=== PATIENT | female | born 1960 | race African-American/Black ===

== ENCOUNTER 2022-03-26 11:05 | Emergency (ER) | payer MEDICARE, MEDICAID ==
[2022-03-26 14:10] LABS: ALT (SGPT) 16 U/L (8-55); AST (SGOT) 56 U/L (5-34); Albumin 3.5 g/dL (3.4-4.8); Alkaline Phosphatase 123 U/L (40-110); Anion Gap 21 mmol/L (10-20); BUN (Urea Nitrogen) 21 mg/dL (9.8-20.1); Bilirubin, Total 1.2 mg/dL (0.2-1.2); Calc. Creatinine Clearance 0 mL/min (70-130); Calcium 9.6 mg/dL (7.8-10.44); Carbon Dioxide 16 mmol/L (23-31); Chloride 106 mmol/L (98-107); Estimated GFR 59; Globulin 4.2 g/dL (2.4-3.5); Glucose 81 mg/dL (80-115); Potassium 4.4 mmol/L (3.5-5.1); Protein, Total 7.7 g/dL (5.8-8.1); Sodium 139 mmol/L (136-145)
[2022-03-26 14:23] LABS: #Lymphocytes 1.1 thou/uL (1.20-3.40); #Monocytes 0.5 thou/uL (0.11-0.59); #Neutrophils 4.1 thou/uL (1.40-6.50); %Basophils 0.4 % (0.0-1.0); %Eosinophils 0.4 % (0.0-10.0); %Lymphocytes 19.1 % (21.0-51.0); %Monocytes 8.4 % (0.0-10.0); %Neutrophils 71.7 % (42.0-75.0); Hemoglobin 16.4 g/dL (12.0-16.0); Mean Corpuscular HGB CONC 32.6 g/dL (32.0-36.0); Mean Corpuscular Hemoglobin 33.9 pg (27.0-31.0); Mean Platelet Volume 10.6 fL (7.4-10.4); Platelet Count 122 thou/uL (130-400); RBC Distribution Width 12.4 % (11.5-14.5); Red Blood Cell (RBC) Count 4.82 mill/uL (4.20-5.40); White Blood Cell (WBC) Count 5.8 thou/uL (4.8-10.8)
[2022-03-26 15:40] LABS: Bilirubin Negative (Negative); Blood, Urine Negative (Negative); Clarity Clear (Clear); Glucose, Urine (Dipstick) Normal (Negative); Ketone, Urine Negative (Negative); Leukocyte Negative Leu/uL (Negative); Nitrite Negative (Negative); Protein, Urine (Dipstick) 20 mg/dL (Neg-Trace); Specific Gravity, Urine 1.026 (1.002-1.036); Urobilinogen Normal mg/dL (Less than 2)
== END 2022-03-26 16:15 | disposition home or self-care (01) ==
LOC: ERS 11:05
DX: R56.9 Unspecified convulsions (principal); E03.9 Hypothyroidism, unspecified; Z79.899 Other long term (current) drug therapy
CPT/HCPCS: 36415; 70450; 80053; 81003; 85025; 93005

== ENCOUNTER 2022-08-21 11:25 | Inpatient (IN) | payer MEDICARE, MEDICAID ==
[~2022-08-21 11:25] MED LIST: Iopamidol-370 76% 500 ML 1 ML ONE
[2022-08-21 12:04] LABS: #Eosinphils 0.1 thou/uL (0.0-0.7); #Lymphocytes 1.4 thou/uL (1.20-3.40); #Monocytes 0.5 thou/uL (0.11-0.59); #Neutrophils 3.5 thou/uL (1.40-6.50); %Basophils 0.4 % (0.0-1.0); %Eosinophils 1.4 % (0.0-10.0); %Lymphocytes 25.1 % (21.0-51.0); %Monocytes 9.3 % (0.0-10.0); %Neutrophils 63.8 % (42.0-75.0); Hemoglobin 13.8 g/dL (12.0-16.0); Mean Corpuscular HGB CONC 32.7 g/dL (32.0-36.0); Mean Corpuscular Hemoglobin 34.1 pg (27.0-31.0); Mean Platelet Volume 10.7 fL (7.4-10.4); Platelet Count 150 10x3/uL (130-400); Red Blood Cell (RBC) Count 4.05 mill/uL (4.20-5.40); White Blood Cell (WBC) Count 5.5 10x3/uL (4.8-10.8)
[2022-08-21 12:30] LABS: ALT (SGPT) 13 U/L (8-55); AST (SGOT) 38 U/L (5-34); Albumin 3.2 g/dL (3.4-4.8); Alkaline Phosphatase 125 U/L (40-110); Anion Gap 15 mmol/L (10-20); BUN (Urea Nitrogen) 24 mg/dL (9.8-20.1); Bilirubin, Total 1.1 mg/dL (0.2-1.2); Calc. Creatinine Clearance 0 mL/min (70-130); Calcium 9.5 mg/dL (7.8-10.44); Carbon Dioxide 22 mmol/L (23-31); Chloride 117 mmol/L (98-107); Estimated GFR 61; Globulin 4.5 g/dL (2.4-3.5); Glucose 72 mg/dL (80-115); Potassium 4.2 mmol/L (3.5-5.1); Protein, Total 7.7 g/dL (5.8-8.1); Sodium 150 mmol/L (136-145)
[2022-08-21 12:50] LABS: CKMB 5.5 ng/mL (0-6.6)
[2022-08-21] MEDS ORDERED: Ziprasidone 20 MG VIAL ONE (13:41)
[2022-08-21 14:37] LABS: Lactic Acid 2.5 mmol/L (0.5-2.2)
[2022-08-21] MEDS ORDERED: Aspirin Chewable 81 MG TAB ONE (15:32)
[2022-08-21] MEDS ORDERED: Ondansetron ODT 4 MG TAB PO PRN (16:35)
[2022-08-21] MEDS ORDERED: Acetaminophen 650 MG Suppository PR PRN (16:35)
[2022-08-21] MEDS ORDERED: Acetaminophen 325 MG TAB PO PRN (16:35)
[2022-08-21] MEDS ORDERED: Ondansetron PF 4 MG/2 ML Vial IVP PRN (16:35)
[2022-08-21 16:48] LABS: Troponin I 0.138 ng/mL (< 0.028)
[2022-08-21 18:57] VITALS: BMI 22.9
[2022-08-21 19:49] LABS: Troponin I 0.107 ng/mL (< 0.028)
[2022-08-22 06:25] LABS: Hemoglobin 13.7 g/dL (12.0-16.0); Mean Corpuscular HGB CONC 32.9 g/dL (32.0-36.0); Mean Corpuscular Hemoglobin 35.2 pg (27.0-31.0); Mean Platelet Volume 10.9 fL (7.4-10.4); Platelet Count 156 10x3/uL (130-400); RBC Distribution Width 14.3 % (11.5-14.5); Red Blood Cell (RBC) Count 3.88 mill/uL (4.20-5.40); White Blood Cell (WBC) Count 4.7 10x3/uL (4.8-10.8)
[2022-08-22 06:30] LABS: Anion Gap 11 mmol/L (10-20); BUN (Urea Nitrogen) 23 mg/dL (9.8-20.1); Calc. Creatinine Clearance 47 mL/min (70-130); Calcium 8.9 mg/dL (7.8-10.44); Carbon Dioxide 27 mmol/L (23-31); Chloride 117 mmol/L (98-107); Estimated GFR 61; Glucose 70 mg/dL (80-115); Potassium 4.6 mmol/L (3.5-5.1)
[2022-08-22 06:31] LABS: Sodium 150 mmol/L (136-145)
[2022-08-22 06:40] LABS: MDiff Complete? YES; Macrocytosis SLIGHT = 6-15 cells (100X) (0-5/hpf)
[2022-08-22 06:57] LABS: Band 3 % (5-11); Eosinophils 3 % (0-10); Lymphocytes 40 % (21-51); Monocytes 7 % (0-10); Neutrophil 47 % (42-75)
[2022-08-22] MEDS ORDERED: Amlodipine 5 MG TAB PO SCH (14:45)
[2022-08-22] MEDS: Chlorhexidine Gluconate 15 ML UDCUP SSP SCH ×2 (14:54→20:51)
[2022-08-22] MEDS: Dextrose 5% in Water 1,000 ML IV SCH ×2 (14:55→20:51)
[2022-08-22] MEDS: Clindamycin 75 mg/5 ml Oral Suspension PO SCH ×2 (16:13→22:58)
[2022-08-22] MEDS ORDERED: Ziprasidone 20 MG VIAL IM SCH ×2 (18:00→18:45)
[2022-08-22] MEDS ORDERED: Sterile Water 10 ML ONE (18:22)
[2022-08-23] MEDS ORDERED: Ziprasidone 20 MG VIAL IM SCH (00:15)
[2022-08-23] MEDS ORDERED: Sterile Water 10 ML VIAL FS PRN (00:15)
[2022-08-23 04:27] LABS: Anion Gap 13 mmol/L (10-20); BUN (Urea Nitrogen) 23 mg/dL (9.8-20.1); Calc. Creatinine Clearance 52 mL/min (70-130); Calcium 8.4 mg/dL (7.8-10.44); Carbon Dioxide 20 mmol/L (23-31); Chloride 110 mmol/L (98-107); Estimated GFR 70; Glucose 126 mg/dL (80-115); Potassium 3.9 mmol/L (3.5-5.1); Sodium 139 mmol/L (136-145)
[2022-08-23 04:46] LABS: Band 3 % (5-11); Eosinophils 1 % (0-10); Hemoglobin 13.1 g/dL (12.0-16.0); Lymphocytes 20 % (21-51); MDiff Complete? YES; Mean Corpuscular HGB CONC 32.5 g/dL (32.0-36.0); Mean Platelet Volume 11.8 fL (7.4-10.4); Monocytes 15 % (0-10); Neutrophil 60 % (42-75); Platelet Count 123 10x3/uL (130-400); RBC Distribution Width 13.9 % (11.5-14.5); Red Blood Cell (RBC) Count 3.86 mill/uL (4.20-5.40); White Blood Cell (WBC) Count 5.5 10x3/uL (4.8-10.8)
[2022-08-23] MEDS: Dextrose 5% in Water 1,000 ML IV SCH ×3 (05:24→22:36)
[2022-08-23] MEDS: Levothyroxine Sodium 125 MCG TAB PO SCH (05:24)
[2022-08-23] MEDS: Clindamycin 75 mg/5 ml Oral Suspension PO SCH ×3 (05:25→22:35)
[2022-08-23] MEDS: Chlorhexidine Gluconate 15 ML UDCUP SSP SCH ×3 (09:11→21:49)
[2022-08-23] MEDS: Loratadine 10 MG TAB PO SCH (09:11)
[2022-08-23] MEDS: Amlodipine 5 MG TAB PO SCH (09:12)
[2022-08-24] MEDS: Levothyroxine Sodium 125 MCG TAB PO SCH (05:55)
[2022-08-24] MEDS: Clindamycin 75 mg/5 ml Oral Suspension PO SCH ×3 (05:55→21:44)
[2022-08-24 06:53] LABS: #Lymphocytes 1.1 thou/uL (1.20-3.40); #Monocytes 0.4 thou/uL (0.11-0.59); #Neutrophils 3.1 thou/uL (1.40-6.50); %Basophils 0.5 % (0.0-1.0); %Lymphocytes 23.8 % (21.0-51.0); %Monocytes 9.1 % (0.0-10.0); %Neutrophils 65.7 % (42.0-75.0); Mean Corpuscular HGB CONC 33.4 g/dL (32.0-36.0); Mean Platelet Volume 11.6 fL (7.4-10.4); Platelet Count 154 10x3/uL (130-400); RBC Distribution Width 13.6 % (11.5-14.5); Red Blood Cell (RBC) Count 3.83 mill/uL (4.20-5.40); White Blood Cell (WBC) Count 4.7 10x3/uL (4.8-10.8)
[2022-08-24 07:16] LABS: Anion Gap 11 mmol/L (10-20); BUN (Urea Nitrogen) 14 mg/dL (9.8-20.1); Calc. Creatinine Clearance 54 mL/min (70-130); Calcium 8.6 mg/dL (7.8-10.44); Carbon Dioxide 26 mmol/L (23-31); Chloride 106 mmol/L (98-107); Estimated GFR 73; Glucose 84 mg/dL (80-115); Potassium 4.5 mmol/L (3.5-5.1); Sodium 138 mmol/L (136-145)
[2022-08-24] MEDS: Chlorhexidine Gluconate 15 ML UDCUP SSP SCH ×3 (09:26→21:44)
[2022-08-24] MEDS: Loratadine 10 MG TAB PO SCH (09:26)
[2022-08-24] MEDS: Amlodipine 5 MG TAB PO SCH (09:26)
[2022-08-24] MEDS: Dextrose 5% in Water 1,000 ML IV SCH (17:50)
[2022-08-25] MEDS: Clindamycin 75 mg/5 ml Oral Suspension PO SCH ×3 (06:15→21:02)
[2022-08-25] MEDS: Levothyroxine Sodium 125 MCG TAB PO SCH (06:15)
[2022-08-25 08:07] LABS: Hemoglobin 12.9 g/dL (12.0-16.0); Mean Corpuscular Hemoglobin 34.3 pg (27.0-31.0); Mean Platelet Volume 12.3 fL (7.4-10.4); Platelet Count 157 10x3/uL (130-400); RBC Distribution Width 13.5 % (11.5-14.5); Red Blood Cell (RBC) Count 3.77 mill/uL (4.20-5.40); White Blood Cell (WBC) Count 5.4 10x3/uL (4.8-10.8)
[2022-08-25 08:30] LABS: Band 6 % (5-11); Eosinophils 1 % (0-10); Large Platelets SLIGHT; Lymphocytes 23 % (21-51); MDiff Complete? YES; Monocytes 13 % (0-10); Myelocyte 1 % (0-0); Neutrophil 56 % (42-75); Platelet Morphology Comment Appears Adequate
[2022-08-25 08:44] LABS: Anion Gap 10 mmol/L (10-20); BUN (Urea Nitrogen) 14 mg/dL (9.8-20.1); Calc. Creatinine Clearance 55 mL/min (70-130); Calcium 8.4 mg/dL (7.8-10.44); Carbon Dioxide 23 mmol/L (23-31); Chloride 108 mmol/L (98-107); Estimated GFR 70; Glucose 83 mg/dL (80-115); Potassium 4.1 mmol/L (3.5-5.1); Sodium 137 mmol/L (136-145)
[2022-08-25] MEDS: Loratadine 10 MG TAB PO SCH (10:20)
[2022-08-25] MEDS: Chlorhexidine Gluconate 15 ML UDCUP SSP SCH ×4 (10:25→20:41)
[2022-08-25] MEDS: Amlodipine 5 MG TAB PO SCH ×2 (10:25→11:13)
[2022-08-25] MEDS: Dextrose 5% in Water 1,000 ML IV SCH (16:13)
[2022-08-26] MEDS: Clindamycin 75 mg/5 ml Oral Suspension PO SCH ×3 (05:27→21:28)
[2022-08-26] MEDS: Levothyroxine Sodium 125 MCG TAB PO SCH ×2 (05:27→05:35)
[2022-08-26 07:34] LABS: #Basophils 0.1 thou/uL (0.0-0.2); #Eosinphils 0.1 thou/uL (0.0-0.7); #Lymphocytes 1.3 thou/uL (1.20-3.40); #Monocytes 0.7 thou/uL (0.11-0.59); #Neutrophils 4.1 thou/uL (1.40-6.50); %Basophils 0.9 % (0.0-1.0); %Eosinophils 1.3 % (0.0-10.0); %Lymphocytes 20.3 % (21.0-51.0); %Monocytes 11.6 % (0.0-10.0); %Neutrophils 65.8 % (42.0-75.0); Mean Corpuscular HGB CONC 34.3 g/dL (32.0-36.0); Mean Corpuscular Hemoglobin 35.1 pg (27.0-31.0); Platelet Count 150 10x3/uL (130-400); RBC Distribution Width 13.7 % (11.5-14.5); Red Blood Cell (RBC) Count 3.98 mill/uL (4.20-5.40); White Blood Cell (WBC) Count 6.2 10x3/uL (4.8-10.8)
[2022-08-26 07:49] LABS: Anion Gap 15 mmol/L (10-20); BUN (Urea Nitrogen) 18 mg/dL (9.8-20.1); Calc. Creatinine Clearance 50 mL/min (70-130); Calcium 8.3 mg/dL (7.8-10.44); Carbon Dioxide 17 mmol/L (23-31); Chloride 111 mmol/L (98-107); Estimated GFR 64; Glucose 75 mg/dL (80-115); Potassium 4.8 mmol/L (3.5-5.1); Sodium 138 mmol/L (136-145)
[2022-08-26] MEDS: Loratadine 10 MG TAB PO SCH (09:07)
[2022-08-26] MEDS: Amlodipine 5 MG TAB PO SCH (09:07)
[2022-08-26] MEDS: Chlorhexidine Gluconate 15 ML UDCUP SSP SCH ×3 (09:08→21:28)
[2022-08-27] MEDS: Clindamycin 75 mg/5 ml Oral Suspension PO SCH (05:11)
[2022-08-27] MEDS: Levothyroxine Sodium 125 MCG TAB PO SCH (05:12)
[2022-08-27] MEDS: Chlorhexidine Gluconate 15 ML UDCUP SSP SCH (07:26)
[2022-08-27 08:20] VITALS: BP 110/64; TEMP 97.7
[2022-08-27] MEDS: Amlodipine 5 MG TAB PO SCH (08:56)
[2022-08-27] MEDS: Loratadine 10 MG TAB PO SCH (08:57)
== END 2022-08-27 14:35 | DRG 158 ==
LOC: ERS 11:25 → ERHOLD 15:45 → CCU 18:31 → OBSVTOIN 08-23 11:32 → T4-B 08-24 22:32
PROVIDERS: ADMIT Family Medicine; ATTEND Internal Medicine
DX: S01.512A Laceration without foreign body of oral cavity, initial encounter (principal); E87.0 Hyperosmolality and hypernatremia; R79.89 Other specified abnormal findings of blood chemistry; E03.9 Hypothyroidism, unspecified; W18.30XA Fall on same level, unspecified, initial encounter; E86.0 Dehydration; I10 Essential (primary) hypertension; I35.1 Nonrheumatic aortic (valve) insufficiency; Q90.9 Down syndrome, unspecified; Y92.129 Unspecified place in nursing home as the place of occurrence of the external cause; Z79.890 Hormone replacement therapy; Z79.899 Other long term (current) drug therapy
CPT/HCPCS: 36415; 70450; 70491; 71045; 80048; 80053; 82553; 83605; 83880; 84484; 85025; 87040; 87070; 87077; 87149; 87205; 93005; 93306; 96372; G0378; J1650; J3486; J7070; Q9967

== ENCOUNTER 2023-03-07 12:24 | Inpatient (IN) | payer MEDICARE, MEDICAID ==
[~2023-03-07 12:24] MED LIST changes: +Iopamidol 370 76% 100 ML VIAL ONE; -Iopamidol-370 76% 500 ML 1 ML ONE
[2023-03-07] MEDS ORDERED: Ipratropium/Albuterol 3 ML NEB ONE (12:52)
[2023-03-07 13:09] LABS: #Basophils 0.1 thou/uL (0.0-0.2); #Monocytes 0.6 thou/uL (0.11-0.59); #Neutrophils 9.3 thou/uL (1.40-6.50); %Basophils 0.9 % (0.0-1.0); %Eosinophils 0.3 % (0.0-10.0); %Lymphocytes 12.4 % (21.0-51.0); %Monocytes 5.5 % (0.0-10.0); %Neutrophils 80.4 % (42.0-75.0); Hemoglobin 12.7 g/dL (12.0-16.0); Mean Corpuscular HGB CONC 30.6 g/dL (32.0-36.0); Mean Corpuscular Hemoglobin 31.4 pg (27.0-31.0); Mean Corpuscular Volume 102.5 fl (78.0-98.0); Mean Platelet Volume 13.4 fL (7.4-10.4); Platelet Count 164 10x3/uL (130-400); RBC Distribution Width 15.4 % (11.5-14.5); Red Blood Cell (RBC) Count 4.05 mill/uL (4.20-5.40); White Blood Cell (WBC) Count 11.5 10x3/uL (4.8-10.8)
[2023-03-07] MEDS ORDERED: Dexamethasone 10 MG/ML VIAL ONE (13:17)
[2023-03-07] MEDS ORDERED: cefTRIAXone (ROCEPHIN) 2 GM VIAL ONE (13:17)
[2023-03-07] MEDS ORDERED: Azithromycin 500 MG VIAL ONE (13:17)
[2023-03-07 13:26] LABS: INR-International Normal Ratio 1.2; PTT 28.7 sec (22.9-36.1); Prothrombin Time 15.9 sec (12.0-14.7)
[2023-03-07 13:29] LABS: Bacteria/HPF 1+ HPF (None Seen); Bilirubin Negative (Negative); Blood, Urine Negative (Negative); CAUTI Indications for Culture Alt mental st,lethar; Clarity Clear (Clear); Glucose, Urine (Dipstick) Normal (Negative); Ketone, Urine Negative (Negative); Leukocyte Negative Leu/uL (Negative); Nitrite Negative (Negative); Protein, Urine (Dipstick) 100 mg/dL (Neg-Trace); RBC/HPF 0-3 HPF (0-3); Specific Gravity, Urine 1.028 (1.002-1.036); Squamous Epithelial None Seen HPF (0-3); Urobilinogen Normal mg/dL (Less than 2); WBC/HPF 0-3 HPF (0-3); pH, Urine 5.5 (5.0-9.0)
[2023-03-07 13:30] LABS: Urine Culture Reflex No No
[2023-03-07 13:31] LABS: Actual Bicarbonate (HCO3a) 20.5 mEq/L (22-28); Analyzer IN Cardio ER; Base Excess (BEa) -1.8 mEq/L (-2.0 to +3.0); CO2 Tension 28.1 mmHg (35.0-45.0); Calcium, Ionized (arterial) 1.13 mmol/L (1.12-1.30); Carboxyhemoglobin (COHb) 0.3 gm% (0.0-3.0); Hematocrit-ABG 38 % (36.0-47.0); Hemoglobin (Hb) 12.9 g/dL (12.0-16.0); O2 Tension (PaO2), arterial 64.5 mmHg (> 80.0); Potassium - ABG Lab 4.31 mmol/L (3.70-5.30)
[2023-03-07 13:34] LABS: D-Dimer Test 10.69 *mcg/mL (0.27-0.43)
[2023-03-07 13:35] LABS: Puncture Site RBA
[2023-03-07 13:36] LABS: ALV-art Gradient 185.575 mmHg (0-20)
[2023-03-07 13:53] LABS: ALT (SGPT) 18 U/L (8-55); AST (SGOT) 37 U/L (5-34); Albumin 3.1 g/dL (3.4-4.8); Alkaline Phosphatase 112 U/L (40-110); Anion Gap 16 mmol/L (10-20); BUN (Urea Nitrogen) 31 mg/dL (9.8-20.1); Bilirubin, Total 0.5 mg/dL (0.2-1.2); Calc. Creatinine Clearance 0 mL/min (70-130); Calcium 9.1 mg/dL (7.8-10.44); Carbon Dioxide 19 mmol/L (23-31); Chloride 119 mmol/L (98-107); Estimated GFR 44; Globulin 5.1 g/dL (2.4-3.5); Glucose 104 mg/dL (80-115); Potassium 4.3 mmol/L (3.5-5.1); Protein, Total 8.2 g/dL (5.8-8.1); Sodium 150 mmol/L (136-145)
[2023-03-07 14:02] LABS: CKMB 2.5 ng/mL (0-6.6)
[2023-03-07] MEDS ORDERED: Aspirin 300 MG Suppository ONE (14:40)
[2023-03-07 16:05] LABS: Lactic Acid 5.4 mmol/L (0.5-2.2)
[2023-03-07 16:23] LABS: Critical Call Chem Troponin I RESULT DECREASING; Troponin I 0.546 ng/mL (< 0.028)
[2023-03-07] MEDS ORDERED: Acetaminophen 650 MG Suppository PR PRN (16:42)
[2023-03-07] MEDS ORDERED: Ondansetron PF 4 MG/2 ML Vial IVP PRN (16:42)
[2023-03-07] MEDS ORDERED: Ondansetron ODT 4 MG TAB PO PRN (16:42)
[2023-03-07] MEDS ORDERED: VANCOMYCIN 1.25 GM/250 ML BAG 1.25 GM in Premix Bag 1 BAG IVPB SCH (17:45)
[2023-03-07] MEDS ORDERED: LevoFLOXacin 750 mg/D5W 750 MG in Premix Bag 1 BAG IVPB SCH (18:00)
[2023-03-07] MEDS: Dextrose 5 %-0.45 % NaCl 1,000 ML IV SCH (18:18)
[2023-03-07] MEDS: Dexamethasone 10 MG in Sodium Chloride 0.9% 50 ML IVPB SCH (18:23)
[2023-03-07] MEDS: Ipratropium/Albuterol 3 ML NEB NEB SCH ×2 (19:14→22:54)
[2023-03-07 19:30] LABS: Critical Call Chem Troponin I RESULT DECREASING; Troponin I 0.483 ng/mL (< 0.028)
[2023-03-07 20:42] LABS: Lactic Acid 4.6 mmol/L (0.5-2.2)
[2023-03-07] MEDS ORDERED: Vancomycin HCl 1 GM in Sodium Chloride 0.9% 250 ML 300 ML IVPB SCH (21:00)
[2023-03-07] MEDS ORDERED: Famotidine/PF 20 mg/2ml Vial SLOW IVP SCH (21:00)
[2023-03-08] MEDS: Ipratropium/Albuterol 3 ML NEB NEB SCH ×5 (01:47→21:37)
[2023-03-08 04:00] LABS: #Monocytes 0.2 thou/uL (0.11-0.59); #Neutrophils 11.8 thou/uL (1.40-6.50); %Basophils 0.2 % (0.0-1.0); %Monocytes 1.4 % (0.0-10.0); %Neutrophils 92.8 % (42.0-75.0); Hemoglobin 13.1 g/dL (12.0-16.0); Mean Corpuscular HGB CONC 31.5 g/dL (32.0-36.0); Mean Platelet Volume 13.7 fL (7.4-10.4); Platelet Count 144 10x3/uL (130-400); RBC Distribution Width 14.9 % (11.5-14.5); Red Blood Cell (RBC) Count 4.22 mill/uL (4.20-5.40); White Blood Cell (WBC) Count 12.7 10x3/uL (4.8-10.8)
[2023-03-08 04:11] LABS: Mean Corpuscular Volume 98.6 fl (78.0-98.0)
[2023-03-08] MEDS: Dextrose 5 %-0.45 % NaCl 1,000 ML IV SCH (04:25)
[2023-03-08 04:43] LABS: ALT (SGPT) 17 U/L (8-55); AST (SGOT) 38 U/L (5-34); Albumin 2.9 g/dL (3.4-4.8); Alkaline Phosphatase 115 U/L (40-110); Anion Gap 19 mmol/L (10-20); BUN (Urea Nitrogen) 23 mg/dL (9.8-20.1); Bilirubin, Total 0.3 mg/dL (0.2-1.2); Calc. Creatinine Clearance 42 mL/min (70-130); Calcium 8.6 mg/dL (7.8-10.44); Carbon Dioxide 14 mmol/L (23-31); Chloride 120 mmol/L (98-107); Estimated GFR 61; Globulin 5.3 g/dL (2.4-3.5); Glucose 142 mg/dL (80-115); Potassium 4.9 mmol/L (3.5-5.1); Protein, Total 8.2 g/dL (5.8-8.1); Sodium 148 mmol/L (136-145)
[2023-03-08 09:29] LABS: Phosphorus 2.8 mg/dL (2.3-4.7)
[2023-03-08] MEDS: Famotidine/PF 20 mg/2ml Vial SLOW IVP SCH (09:51)
[2023-03-08] MEDS: Dextrose 5% in Water 1,000 ML IV SCH ×2 (10:01→16:42)
[2023-03-08] MEDS ORDERED: Sodium Bicarbonate 150 MEQ in Dextrose 5% in Water 1,000 ML IV SCH ×2 (17:00→17:31)
[2023-03-08 17:09] LABS: Anion Gap 18 mmol/L (10-20); BUN (Urea Nitrogen) 18 mg/dL (9.8-20.1); Calc. Creatinine Clearance 53 mL/min (70-130); Calcium 8.7 mg/dL (7.8-10.44); Carbon Dioxide 16 mmol/L (23-31); Chloride 112 mmol/L (98-107); Estimated GFR 79; Glucose 116 mg/dL (80-115); Potassium 4.9 mmol/L (3.5-5.1); Sodium 141 mmol/L (136-145)
[2023-03-08] MEDS ORDERED: Vancomycin 1 GM in Premix Bag 1 BAG IVPB SCH (18:00)
[2023-03-08] MEDS: Dexamethasone 10 MG in Sodium Chloride 0.9% 50 ML IVPB SCH (18:11)
[2023-03-08] MEDS: Albuterol 200 PUFF (6.7GM INHALER) INH SCH ×2 (18:47→21:44)
[2023-03-08] MEDS: Cefepime 2 GM in Sodium Chloride 0.9% 100 ML IVPB SCH (20:54)
[2023-03-09] MEDS: Albuterol 200 PUFF (6.7GM INHALER) INH SCH ×6 (03:20→22:02)
[2023-03-09 07:12] LABS: RBC Distribution Width 14.2 % (11.5-14.5)
[2023-03-09 07:52] LABS: ALT (SGPT) 17 U/L (8-55); AST (SGOT) 35 U/L (5-34); Albumin 3.1 g/dL (3.4-4.8); Alkaline Phosphatase 114 U/L (40-110); Anion Gap 12 mmol/L (10-20); BUN (Urea Nitrogen) 14 mg/dL (9.8-20.1); Bilirubin, Total 0.4 mg/dL (0.2-1.2); CRP (Inflammatory) 6.16 mg/dL (= or < 0.5); Calc. Creatinine Clearance 58 mL/min (70-130); Calcium 8.7 mg/dL (7.8-10.44); Carbon Dioxide 27 mmol/L (23-31); Chloride 104 mmol/L (98-107); Estimated GFR 87; Glucose 92 mg/dL (80-115); Magnesium 1.9 mg/dL (1.6-2.6); Phosphorus 2.5 mg/dL (2.3-4.7); Potassium 4.3 mmol/L (3.5-5.1); Protein, Total 8.1 g/dL (5.8-8.1); Sodium 139 mmol/L (136-145)
[2023-03-09 08:34] LABS: #Monocytes 0.2 thou/uL (0.11-0.59); #Neutrophils 9.1 thou/uL (1.40-6.50); %Basophils 0.2 % (0.0-1.0); %Lymphocytes 10.2 % (21.0-51.0); %Neutrophils 86.7 % (42.0-75.0); Hemoglobin 13.4 g/dL (12.0-16.0); Mean Corpuscular HGB CONC 32.8 g/dL (32.0-36.0); Mean Corpuscular Hemoglobin 30.7 pg (27.0-31.0); Mean Corpuscular Volume 93.4 fl (78.0-98.0); Mean Platelet Volume 14.5 fL (7.4-10.4); Platelet Count 193 10x3/uL (130-400); Red Blood Cell (RBC) Count 4.37 mill/uL (4.20-5.40); White Blood Cell (WBC) Count 10.5 10x3/uL (4.8-10.8)
[2023-03-09] MEDS ORDERED: Dextrose 5 %-0.45 % NaCl 1,000 ML IV SCH (08:45)
[2023-03-09] MEDS ORDERED: Piperacillin/Tazobactam 3.375 GM in Sodium Chloride 0.9% 100 ML IVPB SCH ×2 (09:00→09:15)
[2023-03-09] MEDS ORDERED: D5W-AA 4.25% with LYTES 1,000 ML BAG(PPN) IV SCH (09:00)
[2023-03-09] MEDS: Cefepime 2 GM in Sodium Chloride 0.9% 100 ML IVPB SCH (09:41)
[2023-03-09] MEDS: Famotidine/PF 20 mg/2ml Vial SLOW IVP SCH (09:51)
[2023-03-09] MEDS: Aspirin 81 mg Enteric Coated Tablet PO SCH (09:51)
[2023-03-09] MEDS: D5W-AA 4.25% with LYTES 1,000 ML IV SCH (09:53)
[2023-03-09] MEDS: Piperacillin/Tazobactam 3.375 GM in Sodium Chloride 0.9% 100 ML IVPB SCH ×2 (13:11→20:36)
[2023-03-09] MEDS: Dexamethasone 10 MG in Sodium Chloride 0.9% 50 ML IVPB SCH (17:57)
[2023-03-09] MEDS: Ascorbic Acid 500 mg Chewable Tablet PO SCH (19:38)
[2023-03-09] MEDS: Zinc Sulfate 220 MG CAP PO SCH (20:30)
[2023-03-10] MEDS: Albuterol 200 PUFF (6.7GM INHALER) INH SCH ×3 (02:03→12:05)
[2023-03-10] MEDS: Piperacillin/Tazobactam 3.375 GM in Sodium Chloride 0.9% 100 ML IVPB SCH ×3 (04:59→21:20)
[2023-03-10 05:52] LABS: #Monocytes 0.2 thou/uL (0.11-0.59); #Neutrophils 6.8 thou/uL (1.40-6.50); %Basophils 0.4 % (0.0-1.0); %Monocytes 2.8 % (0.0-10.0); %Neutrophils 84.8 % (42.0-75.0); Hemoglobin 12.7 g/dL (12.0-16.0); Mean Corpuscular HGB CONC 33.1 g/dL (32.0-36.0); Mean Corpuscular Hemoglobin 30.5 pg (27.0-31.0); Mean Corpuscular Volume 92.3 fl (78.0-98.0); Mean Platelet Volume 14.2 fL (7.4-10.4); Platelet Count 202 10x3/uL (130-400); RBC Distribution Width 13.7 % (11.5-14.5); Red Blood Cell (RBC) Count 4.16 mill/uL (4.20-5.40)
[2023-03-10 06:13] LABS: Lactic Acid 2.5 mmol/L (0.5-2.2); Phosphorus 2.6 mg/dL (2.3-4.7)
[2023-03-10 06:16] LABS: ALT (SGPT) 18 U/L (8-55); AST (SGOT) 39 U/L (5-34); Albumin 2.9 g/dL (3.4-4.8); Alkaline Phosphatase 97 U/L (40-110); Anion Gap 13 mmol/L (10-20); BUN (Urea Nitrogen) 22 mg/dL (9.8-20.1); Bilirubin, Total 0.5 mg/dL (0.2-1.2); Calc. Creatinine Clearance 56 mL/min (70-130); Calcium 8.5 mg/dL (7.8-10.44); Carbon Dioxide 28 mmol/L (23-31); Chloride 98 mmol/L (98-107); Estimated GFR 83; Globulin 4.7 g/dL (2.4-3.5); Glucose 94 mg/dL (80-115); Magnesium 2.1 mg/dL (1.6-2.6); Protein, Total 7.6 g/dL (5.8-8.1); Sodium 135 mmol/L (136-145)
[2023-03-10] MEDS: Aspirin 81 mg Enteric Coated Tablet PO SCH (09:54)
[2023-03-10] MEDS: Famotidine/PF 20 mg/2ml Vial SLOW IVP SCH (09:56)
[2023-03-10] MEDS ORDERED: Albuterol 200 PUFF (6.7GM INHALER) INH PRN (10:42)
[2023-03-10] MEDS: Dexamethasone 10 MG in Sodium Chloride 0.9% 50 ML IVPB SCH (17:46)
[2023-03-10] MEDS: Ascorbic Acid 500 mg Chewable Tablet PO SCH (19:43)
[2023-03-10] MEDS: Zinc Sulfate 220 MG CAP PO SCH (19:44)
[2023-03-11] MEDS: Piperacillin/Tazobactam 3.375 GM in Sodium Chloride 0.9% 100 ML IVPB SCH ×3 (04:14→20:00)
[2023-03-11] MEDS: D5W-AA 4.25% with LYTES 1,000 ML IV SCH (04:14)
[2023-03-11 04:57] LABS: #Monocytes 0.2 thou/uL (0.11-0.59); #Neutrophils 6.2 thou/uL (1.40-6.50); %Basophils 0.1 % (0.0-1.0); %Monocytes 3.3 % (0.0-10.0); Hemoglobin 12.6 g/dL (12.0-16.0); Mean Corpuscular Hemoglobin 30.7 pg (27.0-31.0); Mean Corpuscular Volume 93.2 fl (78.0-98.0); Mean Platelet Volume 14.3 fL (7.4-10.4); Platelet Count 205 10x3/uL (130-400); RBC Distribution Width 13.8 % (11.5-14.5); White Blood Cell (WBC) Count 7.4 10x3/uL (4.8-10.8)
[2023-03-11 05:29] LABS: Anion Gap 12 mmol/L (10-20); BUN (Urea Nitrogen) 29 mg/dL (9.8-20.1); Calc. Creatinine Clearance 56 mL/min (70-130); Calcium 8.5 mg/dL (7.8-10.44); Carbon Dioxide 28 mmol/L (23-31); Chloride 101 mmol/L (98-107); Estimated GFR 82; Glucose 99 mg/dL (80-115); Magnesium 2.2 mg/dL (1.6-2.6); Phosphorus 3.3 mg/dL (2.3-4.7); Potassium 4.3 mmol/L (3.5-5.1); Sodium 137 mmol/L (136-145)
[2023-03-11] MEDS: Famotidine/PF 20 mg/2ml Vial SLOW IVP SCH (07:48)
[2023-03-11] MEDS: Aspirin 81 mg Enteric Coated Tablet PO SCH (07:49)
[2023-03-11] MEDS: Dexamethasone 10 MG in Sodium Chloride 0.9% 50 ML IVPB SCH (17:12)
[2023-03-11] MEDS: Zinc Sulfate 220 MG CAP PO SCH (20:02)
[2023-03-11] MEDS: Ascorbic Acid 500 mg Chewable Tablet PO SCH (20:02)
[2023-03-12 04:03] LABS: Hemoglobin 12.9 g/dL (12.0-16.0); Mean Corpuscular HGB CONC 33.6 g/dL (32.0-36.0); Mean Corpuscular Hemoglobin 31.2 pg (27.0-31.0); Mean Platelet Volume 13.3 fL (7.4-10.4); Platelet Count 231 10x3/uL (130-400); RBC Distribution Width 13.7 % (11.5-14.5); Red Blood Cell (RBC) Count 4.13 mill/uL (4.20-5.40); White Blood Cell (WBC) Count 7.8 10x3/uL (4.8-10.8)
[2023-03-12 04:05] LABS: Delete Auto Diff?? YES; Manual Diff?? YES
[2023-03-12 04:24] LABS: Anisocytosis SLIGHT = 6-15 cells HPF (0-5); Band 12 % (5-11); CellaVision Operator ID LAB.CLH1; Eosinophils 2 % (0-10); Large Platelets 7.8 % (0-5); Lymphocytes 10 % (21-51); Monocytes 3 % (0-10); Neutrophil 72 % (42-75); Platelet Adequacy Comment Platelets Normal; Polychromasia SLIGHT = 2-3 cells HPF (0-2); Reactive Lymphocytes 2 % (0-10); Total Cell Count 102
[2023-03-12 04:25] LABS: Anion Gap 9 mmol/L (10-20); BUN (Urea Nitrogen) 32 mg/dL (9.8-20.1); Calc. Creatinine Clearance 54 mL/min (70-130); Calcium 8.4 mg/dL (7.8-10.44); Carbon Dioxide 28 mmol/L (23-31); Chloride 103 mmol/L (98-107); Estimated GFR 80; Glucose 109 mg/dL (80-115); Magnesium 2.4 mg/dL (1.6-2.6); Phosphorus 2.9 mg/dL (2.3-4.7); Potassium 3.9 mmol/L (3.5-5.1); Sodium 136 mmol/L (136-145)
[2023-03-12] MEDS: Piperacillin/Tazobactam 3.375 GM in Sodium Chloride 0.9% 100 ML IVPB SCH ×3 (04:58→21:38)
[2023-03-12] MEDS: Famotidine/PF 20 mg/2ml Vial SLOW IVP SCH (08:15)
[2023-03-12] MEDS: Aspirin 81 mg Enteric Coated Tablet PO SCH (08:16)
[2023-03-12] MEDS: AA 4.25 %/CALCIUM/LYTES/D5W 2,000 ML IV SCH (11:01)
[2023-03-12] MEDS: Dexamethasone 10 MG in Sodium Chloride 0.9% 50 ML IVPB SCH (17:39)
[2023-03-12] MEDS: Ascorbic Acid 500 mg Chewable Tablet PO SCH (21:37)
[2023-03-12] MEDS: Zinc Sulfate 220 MG CAP PO SCH (21:38)
[2023-03-13] MEDS: Piperacillin/Tazobactam 3.375 GM in Sodium Chloride 0.9% 100 ML IVPB SCH ×3 (06:22→22:06)
[2023-03-13] MEDS: Famotidine/PF 20 mg/2ml Vial SLOW IVP SCH (08:52)
[2023-03-13] MEDS: Aspirin 81 mg Enteric Coated Tablet PO SCH (08:52)
[2023-03-13] MEDS: Dexamethasone 10 MG in Sodium Chloride 0.9% 50 ML IVPB SCH (17:27)
[2023-03-13] MEDS: Zinc Sulfate 220 MG CAP PO SCH (22:07)
[2023-03-13] MEDS: AA 4.25 %/CALCIUM/LYTES/D5W 2,000 ML IV SCH (22:08)
[2023-03-13] MEDS: Ascorbic Acid 500 mg Chewable Tablet PO SCH (22:11)
[2023-03-14 04:41] LABS: Anion Gap 17 mmol/L (10-20); Carbon Dioxide 20 mmol/L (23-31); Chloride 106 mmol/L (98-107); Potassium 4.5 mmol/L (3.5-5.1); Sodium 138 mmol/L (136-145)
[2023-03-14 04:42] LABS: BUN (Urea Nitrogen) 34 mg/dL (9.8-20.1); Calc. Creatinine Clearance 51 mL/min (70-130); Calcium 8.2 mg/dL (7.8-10.44); Estimated GFR 74; Glucose 95 mg/dL (80-115); Magnesium 2.6 mg/dL (1.6-2.6); Phosphorus 2.9 mg/dL (2.3-4.7)
[2023-03-14 04:57] LABS: Hemoglobin 14.5 g/dL (12.0-16.0); Mean Corpuscular Hemoglobin 30.9 pg (27.0-31.0); Mean Corpuscular Volume 93.4 fl (78.0-98.0); Red Blood Cell (RBC) Count 4.69 mill/uL (4.20-5.40); White Blood Cell (WBC) Count 10.1 10x3/uL (4.8-10.8)
[2023-03-14 04:58] LABS: #Monocytes 0.8 thou/uL (0.11-0.59); %Basophils 0.3 % (0.0-1.0); %Lymphocytes 10.6 % (21.0-51.0); %Monocytes 7.5 % (0.0-10.0); %Neutrophils 78.6 % (42.0-75.0); Mean Corpuscular HGB CONC 33.1 g/dL (32.0-36.0); Platelet Count 178 10x3/uL (130-400); RBC Distribution Width 14.6 % (11.5-14.5)
[2023-03-14] MEDS: Piperacillin/Tazobactam 3.375 GM in Sodium Chloride 0.9% 100 ML IVPB SCH ×3 (05:01→21:04)
[2023-03-14] MEDS: Famotidine/PF 20 mg/2ml Vial SLOW IVP SCH (09:02)
[2023-03-14] MEDS: Aspirin 81 mg Enteric Coated Tablet PO SCH ×2 (09:02→09:38)
[2023-03-14] MEDS ORDERED: Aspirin Chewable 81 MG TAB PO SCH (09:15)
[2023-03-14] MEDS: Dexamethasone 10 MG in Sodium Chloride 0.9% 50 ML IVPB SCH (18:20)
[2023-03-14] MEDS: Ascorbic Acid 500 mg Chewable Tablet PO SCH (21:04)
[2023-03-14] MEDS: Zinc Sulfate 220 MG CAP PO SCH (21:04)
[2023-03-15] MEDS: Aspirin Chewable 81 MG TAB PO SCH (09:05)
[2023-03-15] MEDS: Famotidine/PF 20 mg/2ml Vial SLOW IVP SCH (09:07)
[2023-03-15 10:10] VITALS: BMI 22.1
[2023-03-15] MEDS: Ascorbic Acid 500 mg Chewable Tablet PO SCH (20:51)
[2023-03-15] MEDS: Zinc Sulfate 220 MG CAP PO SCH (20:51)
[2023-03-16] MEDS ORDERED: Lorazepam 2 MG/ML VIAL SLOW IVP PRN (09:50)
[2023-03-16] MEDS ORDERED: Fentanyl 100 MCG/2 ML VIAL SLOW IVP PRN (09:55)
[2023-03-16] MEDS ORDERED: fentaNYL 50 mcg/mL 1 mL Vial SLOW IVP PRN (09:57)
[2023-03-16] MEDS: Aspirin Chewable 81 MG TAB PO SCH (09:57)
[2023-03-16] MEDS: Famotidine/PF 20 mg/2ml Vial SLOW IVP SCH (10:08)
[2023-03-16 11:54] VITALS: TEMP 97
[2023-03-16 12:43] VITALS: BP 97/67
== END 2023-03-16 14:33 | disposition hospice, inpatient (51) | DRG 871 ==
LOC: ERS 12:24 → IMCU/EMU 15:06 → 2SE 03-13 01:53
PROVIDERS: ADMIT Family Medicine; ATTEND Family Medicine
PROC: 3E03329 Introduction of Other Anti-infective into Peripheral Vein, Percutaneous Approach (ICD-10-PCS; principal; 2023-03-07)
PROC: 5A09357 Assistance with Respiratory Ventilation, Less than 24 Consecutive Hours, Continuous Positive Airway Pressure (ICD-10-PCS; 2023-03-07)
PROC: 4A033R1 Measurement of Arterial Saturation, Peripheral, Percutaneous Approach (ICD-10-PCS; 2023-03-07)
PROC: 0T9B70Z Drainage of Bladder with Drainage Device, Via Natural or Artificial Opening (ICD-10-PCS; 2023-03-07)
PROC: 3E0333Z Introduction of Anti-inflammatory into Peripheral Vein, Percutaneous Approach (ICD-10-PCS; 2023-03-07)
DX: A41.89 Other specified sepsis (principal); G93.41 Metabolic encephalopathy; J96.01 Acute respiratory failure with hypoxia; J69.0 Pneumonitis due to inhalation of food and vomit; I21.A1 Myocardial infarction type 2; J18.9 Pneumonia, unspecified organism; U07.1 COVID-19; J12.82 Pneumonia due to coronavirus disease 2019; N17.9 Acute kidney failure, unspecified; E87.20 Acidosis, unspecified; E87.0 Hyperosmolality and hypernatremia; E44.0 Moderate protein-calorie malnutrition; Z66 Do not resuscitate; Z51.5 Encounter for palliative care; R65.20 Severe sepsis without septic shock; K21.9 Gastro-esophageal reflux disease without esophagitis; E03.9 Hypothyroidism, unspecified; R62.50 Unspecified lack of expected normal physiological development in childhood; R13.10 Dysphagia, unspecified; E87.8 Other disorders of electrolyte and fluid balance, not elsewhere classified; R80.9 Proteinuria, unspecified; R53.81 Other malaise; N18.2 Chronic kidney disease, stage 2 (mild); D63.1 Anemia in chronic kidney disease; E86.9 Volume depletion, unspecified; I12.9 Hypertensive chronic kidney disease with stage 1 through stage 4 chronic kidney disease, or unspecified chronic kidney disease; Q90.9 Down syndrome, unspecified; Z82.49 Family history of ischemic heart disease and other diseases of the circulatory system; Z68.22 Body mass index [BMI] 22.0-22.9, adult; Z86.16 Personal history of COVID-19
CPT/HCPCS: 36415; 36416; 36600; 51701; 71045; 71275; 80048; 80053; 81001; 82553; 82805; 83605; 83735; 84100; 84145; 84484; 85025; 85379; 85610; 85730; 86140; 87040; 93005; 93010; 94640; 94660; 96365; 96367; 96375; 97139; 99292; J0456; J0692; J0696; J1100; J1650; J1956; J2060; J2405; J2543; J3010; J3370; J3370-JW; J3490; J7042; J7070; J7620; Q9967; S0028